=== PATIENT | male | born 1940 | race Caucasian/White ===

== ENCOUNTER → 2018-02-02 | Outpatient (CLI) | payer MEDICARE, OTHER ==
[~2018-02-02] MED LIST: GLIP-152 PO; METF-420 PO; OXYC-865 PO; PIOG15TA14 PO; PRAV20TA65 PO; SITA100T PO
[2018-02-02 09:29] LABS: LDL CHOLESTEROL 82 mg/dl
== END ==
LOC: LAB 08:01
PROVIDERS: ATTEND Family Medicine
DX: E11.9 Type 2 diabetes mellitus without complications (principal); E78.5 Hyperlipidemia, unspecified; N40.1 Benign prostatic hyperplasia with lower urinary tract symptoms
CPT/HCPCS: 36415; 82040; 82247; 82310; 82374; 82435; 82465; 82565; 82947; 83036; 83718; 84075; 84132; 84153; 84155; 84295; 84450; 84460; 84478; 84520

== ENCOUNTER → 2018-05-23 | Outpatient (CLI) | payer MEDICARE, OTHER ==
[~2018-05-23] MED LIST changes: -METF-420 PO; +METF-421 PO
== END ==
LOC: LAB 08:10
PROVIDERS: ATTEND Family Medicine
DX: E11.9 Type 2 diabetes mellitus without complications (principal)
CPT/HCPCS: 36415; 83036

== ENCOUNTER → 2019-01-30 | Outpatient (CLI) | payer MEDICARE, OTHER ==
[~2019-01-30] MED LIST changes: -METF-421 PO; +METF-452 PO
[2019-01-30 09:00] LABS: LDL CHOLESTEROL 61 mg/dl
== END ==
LOC: LAB 08:13
PROVIDERS: ATTEND Family Medicine
DX: E11.9 Type 2 diabetes mellitus without complications (principal); N40.1 Benign prostatic hyperplasia with lower urinary tract symptoms; E78.5 Hyperlipidemia, unspecified; R97.20 Elevated prostate specific antigen [PSA]
CPT/HCPCS: 36415; 82040; 82043; 82247; 82310; 82374; 82435; 82465; 82565; 82947; 83036; 83718; 84075; 84132; 84153; 84155; 84295; 84443; 84450; 84460; 84478; 84520